=== PATIENT | female | born 1990 | race Two or more races ===

== ENCOUNTER 2018-02-19 16:47 | Emergency (ER) | payer BC ==
[~2018-02-19] VITALS: Ht 152.4 cm; Wt 52.2 kg
[2018-02-19] MEDS ORDERED: NAPROXEN 250 MG TABLET ONE (18:17)
[2018-02-19] MEDS ORDERED: CLINDAMYCIN 900 MG/6 ML VIAL ONE (18:17)
[2018-02-19] MEDS ORDERED: NAPROXEN 500 MG TABLET PO SCH (18:30)
[2018-02-19] MEDS ORDERED: CLINDAMYCIN 900 MG/6 ML VIAL IM ONE (18:30)
--- NOTE | 2018-02-19 18:35 | NUR ---
patient bib self, c/o pain and swelling to L hand x 3 days s/p injecting dirty needle. alert and oriented x 4, verbally responsive and able to make needs known. on room air, breathing evenly and unlabored. kept comfortable. will continue to monitor accordingly.
--- NOTE | 2018-02-19 19:22 | NUR ---
Patient discharged to home in stable condition. Written and verbal after care instructions given. Patient verbalizes understanding of instruction.
[2018-02-19 19:23] VITALS: BP 107/76
== END 2018-02-19 19:24 | disposition home or self-care (01) ==
LOC: ER 16:49
DX: L03.114 Cellulitis of left upper limb (principal); F11.10 Opioid abuse, uncomplicated; M79.642 Pain in left hand; Z88.8 Allergy status to other drugs, medicaments and biological substances
CPT/HCPCS: 73080; 96372; 99283; A4606; J3490; Z7610